=== PATIENT | male | born 1960 | race Caucasian/White ===

== ENCOUNTER 2020-03-23 16:22 | Emergency (ER) | payer MEDICARE, SELFPAY ==
[2020-03-23] VITALS (7 sets, daily range): BP systolic 136–150; BP diastolic 81–103; PULSE 91–98; RESP 15–22; TEMP 36.6–36.8; O2SAT 94–98
--- NOTE | ~2020-03-23 | CT_ITS ---
EXAMINATION: CTA chest PE protocol DATE: 03/23/2020 20:33 CDT INDICATION: Mid chest pain. Elevated d-dimer. TECHNIQUE: Computed tomographic angiography (CTA) of the chest was performed with 100 mL Omnipaque-35 0 intravenous contrast. The dose-length product was 524.40 mGy-cm. Maximum intensity projection 3D-re constructions of the aorta and other arteries were constructed by the technologist on a separate work station. Automated exposure control and iterative reconstruction technique were employed. COMPARISON: None. FINDINGS: Study is technically adequate without evidence for pulmonary embolism. No significant pleur al or pericardial effusion. Borderline sized right hilar lymph node, likely reactive. No evidence for aortic aneurysm or dissection. Heart size is normal. Upper abdomen is unremarkable. No focal airspac e consolidation. No endobronchial lesions. No pneumothorax. No suspicious pulmonary nodules or masses . IMPRESSION: 1. No evidence for pulmonary embolism. No acute cardiopulmonary disease. Reviewed, dictated and finalized at location A.
--- NOTE | ~2020-03-23 | XR_ITS ---
EXAMINATION: XR chest 2V 03/23/2020 18:18 INDICATION: [id number] chest pain for 2 days. Dyspnea. PROCEDURE: 2 view chest COMPARISON: No prior studies for comparison. FINDINGS: The lungs are clear. The cardiomediastinal silhouette is within normal limits. There are no pleural effusions. There is no pneumothorax suspected. IMPRESSION: 1: NO ACUTE CARDIOPULMONARY DISEASE. Reviewed, dictated and finalized at location A.
--- NOTE | 2020-03-23 16:23 | ECG_ITS ---
Measurements Intervals [place] Rate: 102 P: 50 WI: 135 QRS: 33 QRSD: 93 T: 47 QT: 343 QTc: 448 Interpretive Statements SINUS TACHYCARDIA INCOMPLETE RIGHT BUNDLE BRANCH BLOCK BASELINE WANDER- II, III, AVR, AVL, AVF, V1-V2 BORDERLINE ECG Electronically Signed On 03-24-2020 7:22:37 CDT by Rolando Ambriz D.O.
[2020-03-23 16:43] LABS: Basophils Absolute Auto 0.1 K/mm3 (0.0-0.1); Basophils Percent Auto 0.7 % (0.2-1.2); Eosinophils Absolute Auto 0.1 K/mm3 (0-0.3); Hematocrit 44.2 % (42.0-52.0); Hemoglobin 15.3 g/dL (14.0-18.0); Immature Granulocyte Absolute 0.04 K/mm3 (0.00-0.031); Immature Granulocyte Percent A 0.4 % (0-0.5); Lymphocytes Absolute Auto 2.71 K/mm3 (0.9-3.2); Mean Corpuscular HGB Conc 34.6 g/dl (32-36); Mean Corpuscular Hemoglobin 34.1 pg (26-34); Mean Corpuscular Volume 98.4 fl (80-100); Mean Platelet Volume 9.6 fl (7.4-10.4); Monocytes Absolute Auto 0.8 K/mm3 (0.1-0.6); Monocytes Percent Auto 8.3 % (2.6-8.5); Neutrophils Absolute Auto 5.7 K/mm3 (1.3-6.7); Neutrophils Percent Auto 60.6 % (45.5-73.1); Platelet Count Result 289 k/mm3 (150-375); Red Blood Count 4.49 M/mm3 (4.6-6.20); Red Cell Distribution Width 12.3 % (11.5-14.5); White Blood Count 9.4 K/mm3 (4.5-10.0)
[2020-03-23 16:51] LABS: INR 0.9; Prothrombin Time 11.7 Seconds (11.1-14.7)
[2020-03-23 16:52] LABS: Partial Thromboplastin Time 27.3 SECONDS (22.3-36.8)
[2020-03-23 16:53] LABS: Anion Gap 9 mmol/L (8-16); Blood Urea Nitrogen 16 mg/dL (9-20); Calcium 8.9 mg/dL (8.4-10.2); Carbon Dioxide 28 mmol/L (22-30); Chloride 100 mmol/L (98-107); Estimated CRCL calculation 89 ml/min; Estimated Glomerular Filt Rate > 60; Glucose 118 mg/dL (75-110); Potassium 3.9 mmol/L (3.4-5.0); Sodium 137 mmol/L (137-145)
[2020-03-23 17:05] LABS: Troponin I < 0.012 ng/mL (0.000-0.034)
[2020-03-23 18:25] LABS: D Dimer 1.06 ug/mL (<0.48)
[2020-03-23 19:47] LABS: Troponin I < 0.012 ng/mL (0.000-0.034)
[2020-03-23] MEDS: MORPHINE SULFATE 4 MG/ML INJ IV PUSH (19:58)
--- NOTE | 2020-03-23 21:31 | ED.CHESTPAIN ---
HPI - Chest Pain General Chief Complaint: Chest Pain Stated Complaint: chest pains Time Seen by Provider: 03/23/20 18:04 Source: patient Mode of arrival: ambulatory Limitations: no limitations History of Present Illness HPI narrative: 59-year-old with no major medical problems here with complaints of left-sided chest pain since yesterday. He states the pain is constant in nature mostly in the left nonradiating. Denies any shortness of breath, cough or fever or chills. Denies any injuries or lifting any heavy objects. States that every time he takes a deep breath he gets pain in the left side of the chest. complaint: chest pain Onset (ago): day(s) (1) Timing of current episode: constant Prior episodes: No Pain location: left chest Pain radiation: none Severity: moderate Quality: aching Relieving factors: nothing Exacerbating factors: nothing Treatment prior to arrival: none Risk Factors Coronary artery disease risk factors: none Related Data Allergies Allergy/AdvReac Type Severity Reaction Status Date / Time No Known Allergies Allergy Verified 03/23/20 18:25 Review of Systems Review of Systems: All systems reviewed & are unremarkable except as noted in HPI and below Constitutional: Constitutional: Reports as per HPI Eyes: Eyes: Reports as per HPI ENT: Reports system reviewed and no additional complaints, except as documented Cardiovascular: Cardiovascular: Reports no additional cardiovascular complaints Respiratory: Respiratory: Reports no additional respiratory complaints Gastrointestinal: Gastrointestinal: Reports no additional gastrointestinal complaints Musculoskeletal: Musculoskeletal: Reports no additional musculoskeletal complaints Neurologic: Reports system reviewed and no additional complaints, except as documented PMFSH Social History Social History Gender identity (if verbalized by the patient): Male Exam Narrative: Exam Narrative: GENERAL: Well-appearing, well-nourished, and in no acute distress. HEAD: Normocephalic, atraumatic. EYES: PERRLA and EOMI. ENT: Nares clear, no rhinorrhea or epistaxis. Mucous membranes moist. NECK: Supple. CHEST: Clear to auscultation. No respiratory distress. chest wall tender on the left between 3 and 4 th intercostal space HEART: Regular rate and rhythm. No murmur heard. Normal peripheral pulses. ABDOMEN: Soft, nontender, nondistended, normal active bowel sounds. EXTREMITIES: Normal range of motion. No edema. SKIN: Warm, dry, no rash. NEURO: No focal deficits. Alert and oriented x3. PSYCH: Normal mood and affect. Course Course Emergency Course: Has the pain is reproducible and very tender on palpation will give him IV morphine. Vital Signs Vital signs: Vital Signs Temperature 36.6 C 03/23/20 16:24 Pulse Rate 98 03/23/20 16:24 Respiratory Rate 17 03/23/20 16:24 Blood Pressure 136/81 03/23/20 16:24 Pulse Oximetry 97 03/23/20 16:24 Temperature 36.6 C 03/23/20 19:59 Pulse Rate 94 03/23/20 19:59 Respiratory Rate 15 03/23/20 19:59 Blood Pressure 145/93 H 03/23/20 19:59 Pulse Oximetry 97 03/23/20 19:59 MDM - Chest Pain MDM Narrative Medical decision making narrative: With a given history of chest pain I will do a cardiac work-up including d-dimer as he was complaining of increasing pain with breathing patient apparently was elevated I did a CT of the chest which was unremarkable. I discussed labs, CT findings with the patient. His pain has much improved this time his cause of chest pain most likely costochondritis. Lab Data Result diagrams: 03/23/20 16:36 03/23/20 16:36 Labs: Lab Results 03/23/20 03/23/20 03/23/20 Range/Units 16:32 16:36 16:36 WBC 9.4 (4.5-10.0) K/mm3 RBC 4.49 L (4.6-6.20) M/mm3 Hgb 15.3 (14.0-18.0) g/dL Hct 44.2 (42.0-52.0) % MCV 98.4 (80-100) fl MCH 34.1 H (26-34) pg MCHC
== END 2020-03-23 22:05 | disposition home or self-care (01) ==
PROVIDERS: Physician Assistant; Emergency Provider Family Medicine
DX: M94.0 Chondrocostal junction syndrome [Tietze] (principal); R07.89 Other chest pain; I45.10 Unspecified right bundle-branch block; R00.0 Tachycardia, unspecified
CPT/HCPCS: 36415; 71046; 71275; 80048; 84484; 85025; 85380; 85610; 85730; 93005; 96374; 99284; J2270; Q9967